=== PATIENT | female | born 1965 | race Caucasian/White ===

== ENCOUNTER 2017-10-21 02:39 | Outpatient (RCR) | payer BC, SELFPAY ==
[2017-10-21] MEDS: Normal Saline Flush 10 ML SYR IVP (10:40)
[2017-10-21 11:01] LABS: Abs Immature Grans 0.01 k/cumm (0.0-0.09); Absolute Eosinophil Count 0.01 k/cumm (0.0-0.7); Absolute Lymphocyte Count 0.49 k/cumm (1.2-3.4); Absolute Monocyte Count 0.42 k/cumm (0.11-0.7); Absolute Neutrophil Count 4.17 k/cumm (1.2-6.7); Eosinophils % 0.2; HCT 35.4 % (36.0-46.0); HGB 11.7 g/dL (12.0-15.5); Immature Grans % 0.2; Lymphocytes % 9.6; Mean Corp. HGB Concentration 33.1 g/dL (32.0-36.0); Mean Corpuscular Volume 99.7 fL (80-95); Mean Platelet Volume 11.2 fL (8.0-11.0); Monocytes % 8.2; Neutrophils % 81.8; RBC 3.55 m/cumm (4.00-5.20); RBC Distribution Width 18.7 % (11.7-14.6)
[2017-10-21 11:13] LABS: ALT 19 U/L (12-78); AST 14 U/L (15-37); Alkaline Phosphatase 151 U/L (46-116); Anion Gap 10.6 mmol/L (3-11); BUN 14 mg/dL (7-18); Bilirubin, Total 0.5 mg/dL (0.2-1.0); CO2 27.4 mmol/L (21.0-32.0); Calcium 9.1 mg/dL (8.5-10.1); Chloride 101 mmol/L (98-107); Glucose 96 mg/dL (70-100); Potassium 4.2 mmol/L (3.5-5.1); Sodium 139 mmol/L (136-145)
[2017-10-21 11:18] LABS: Anisocytosis 2+; Diff Comment RBC Morph Reviewed; Macrocytosis 1+; Platelet Count 75 x1000/uL (130-400); Polychromasia Present
[2017-10-28] MEDS: Normal Saline Flush 10 ML SYR IVP (10:12)
[2017-10-28 10:24] LABS: Abs Immature Grans 0.02 k/cumm (0.0-0.09); Absolute Basophil Count 0.02 k/cumm (0.0-0.2); Absolute Eosinophil Count 0.05 k/cumm (0.0-0.7); Absolute Lymphocyte Count 0.93 k/cumm (1.2-3.4); Absolute Monocyte Count 0.31 k/cumm (0.11-0.7); Basophils % 0.4; Eosinophils % 1.1; HCT 36.7 % (36.0-46.0); HGB 12.1 g/dL (12.0-15.5); Immature Grans % 0.4; Lymphocytes % 20.1; Mean Corpuscular Hemoglobin 32.7 pg (27.0-33.0); Mean Corpuscular Volume 99.2 fL (80-95); Mean Platelet Volume 10.2 fL (8.0-11.0); Monocytes % 6.7; Neutrophils % 71.3; White Blood Cell Count 4.63 k/cumm (4.4-10.8)
[2017-10-28 10:36] LABS: Platelet Count 82 x1000/uL (130-400)
[2017-10-28 10:39] LABS: ALT 29 U/L (12-78); AST 18 U/L (15-37); Alkaline Phosphatase 121 U/L (46-116); Anion Gap 10.4 mmol/L (3-11); BUN 10 mg/dL (7-18); Bilirubin, Total 1.3 mg/dL (0.2-1.0); CO2 26.6 mmol/L (21.0-32.0); CREATININE 0.43 mg/dL (0.55-1.02); Calcium 8.6 mg/dL (8.5-10.1); Chloride 100 mmol/L (98-107); Glucose 83 mg/dL (70-100); Potassium 3.5 mmol/L (3.5-5.1); Sodium 137 mmol/L (136-145); Total Protein 6.9 g/dL (6.4-8.2)
[2017-11-11] MEDS: Normal Saline Flush 10 ML SYR IVP (08:10)
[2017-11-11 08:18] LABS: Abs Immature Grans 0.15 k/cumm (0.0-0.09); HCT 32.7 % (36.0-46.0); HGB 10.8 g/dL (12.0-15.5); Mean Corpuscular Hemoglobin 34.1 pg (27.0-33.0); Mean Corpuscular Volume 103.2 fL (80-95); Mean Platelet Volume 10.5 fL (8.0-11.0); RBC 3.17 m/cumm (4.00-5.20); RBC Distribution Width 19.2 % (11.7-14.6); White Blood Cell Count 3.32 k/cumm (4.4-10.8)
[2017-11-11 08:32] LABS: ALT 22 U/L (12-78); AST 13 U/L (15-37); Alkaline Phosphatase 132 U/L (46-116); Anion Gap 5.9 mmol/L (3-11); BUN 15 mg/dL (7-18); Bilirubin, Total 0.3 mg/dL (0.2-1.0); CO2 29.1 mmol/L (21.0-32.0); Calcium 8.4 mg/dL (8.5-10.1); Chloride 100 mmol/L (98-107); Glucose 104 mg/dL (70-100); Potassium 3.9 mmol/L (3.5-5.1); Sodium 135 mmol/L (136-145); Total Protein 6.4 g/dL (6.4-8.2)
[2017-11-11 08:47] LABS: Absolute Lymphocyte Count 0.46 k/cumm (1.2-3.4); Absolute Monocyte Count 0.27 k/cumm (0.11-0.7); Absolute Neutrophil Count 2.52 k/cumm (1.2-6.7); Atypical Lymphocytes % 1; Platelet Count 98 x1000/uL (130-400)
[2017-11-11 08:48] LABS: Diff Comment Manual Differential
[2017-11-11 08:49] LABS: Anisocytosis 2+; Poikilocytes 1+; Polychromasia Present
[2017-11-12 14:32] LABS: CEA 670.2 ng/ml
[2017-12-23] MEDS: Normal Saline Flush 10 ML SYR IVP ×2 (09:00→11:05)
[2017-12-23 11:24] LABS: Abs Immature Grans 0.08 k/cumm (0.0-0.09); Absolute Eosinophil Count 0.07 k/cumm (0.0-0.7); Absolute Lymphocyte Count 1.69 k/cumm (1.2-3.4); Basophils % 1.5; HCT 32.8 % (36.0-46.0); Immature Grans % 1.2; Lymphocytes % 24.7; Mean Corp. HGB Concentration 33.5 g/dL (32.0-36.0); Mean Corpuscular Hemoglobin 35.1 pg (27.0-33.0); Mean Corpuscular Volume 104.8 fL (80-95); Mean Platelet Volume 9.4 fL (8.0-11.0); Monocytes % 13.2; Neutrophils % 58.4; Platelet Count 112 x1000/uL (130-400); RBC 3.13 m/cumm (4.00-5.20); RBC Distribution Width 15.7 % (11.7-14.6); White Blood Cell Count 6.84 k/cumm (4.4-10.8)
[2017-12-23 11:37] LABS: ALT 19 U/L (12-78); AST 18 U/L (15-37); Albumin 3.1 g/dL (3.4-5.0); Alkaline Phosphatase 119 U/L (46-116); Anion Gap 10.3 mmol/L (3-11); BUN 4 mg/dL (7-18); Bilirubin, Total 0.6 mg/dL (0.2-1.0); CO2 28.7 mmol/L (21.0-32.0); CREATININE 0.47 mg/dL (0.55-1.02); Chloride 99 mmol/L (98-107); Glucose 90 mg/dL (70-100); Sodium 138 mmol/L (136-145); Total Protein 6.4 g/dL (6.4-8.2)
[2017-12-24 09:41] LABS: CEA 772.4 ng/ml
[2017-12-30] MEDS: Normal Saline Flush 10 ML SYR IVP (08:30)
[2017-12-30 08:47] LABS: Abs Immature Grans 0.02 k/cumm (0.0-0.09); Absolute Basophil Count 0.04 k/cumm (0.0-0.2); Absolute Eosinophil Count 0.01 k/cumm (0.0-0.7); Absolute Lymphocyte Count 0.61 k/cumm (1.2-3.4); Absolute Monocyte Count 0.78 k/cumm (0.11-0.7); Absolute Neutrophil Count 3.32 k/cumm (1.2-6.7); Basophils % 0.8; Eosinophils % 0.2; HCT 30.2 % (36.0-46.0); HGB 10.5 g/dL (12.0-15.5); Immature Grans % 0.4; Lymphocytes % 12.8; Mean Corp. HGB Concentration 34.8 g/dL (32.0-36.0); Mean Corpuscular Hemoglobin 35.2 pg (27.0-33.0); Mean Corpuscular Volume 101.3 fL (80-95); Mean Platelet Volume 10.4 fL (8.0-11.0); Monocytes % 16.3; Neutrophils % 69.5; Platelet Count 105 x1000/uL (130-400); RBC 2.98 m/cumm (4.00-5.20); RBC Distribution Width 14.9 % (11.7-14.6); White Blood Cell Count 4.78 k/cumm (4.4-10.8)
[2017-12-30 08:59] LABS: ALT 17 U/L (12-78); AST 18 U/L (15-37); Albumin 3.1 g/dL (3.4-5.0); Alkaline Phosphatase 126 U/L (46-116); Anion Gap 13.4 mmol/L (3-11); BUN 5 mg/dL (7-18); Bilirubin, Total 0.6 mg/dL (0.2-1.0); CO2 24.6 mmol/L (21.0-32.0); CREATININE 0.79 mg/dL (0.55-1.02); Calcium 7.2 mg/dL (8.5-10.1); Chloride 93 mmol/L (98-107); Glucose 225 mg/dL (70-100); Sodium 131 mmol/L (136-145); Total Protein 6.6 g/dL (6.4-8.2)
[2017-12-30 09:04] LABS: Potassium 2.9 mmol/L (3.5-5.1)
[2017-12-30 13:42] LABS: Magnesium 0.7 mg/dL (1.8-2.4)
[2017-12-31 11:52] LABS: CEA 956.2 ng/ml
[2018-01-06] MEDS: Normal Saline Flush 10 ML SYR IVP (07:55)
[2018-01-06 08:14] LABS: Abs Immature Grans 0.03 k/cumm (0.0-0.09); Absolute Basophil Count 0.06 k/cumm (0.0-0.2); Absolute Eosinophil Count 0.04 k/cumm (0.0-0.7); Absolute Lymphocyte Count 0.88 k/cumm (1.2-3.4); Absolute Neutrophil Count 3.58 k/cumm (1.2-6.7); Eosinophils % 0.7; HCT 34.4 % (36.0-46.0); HGB 11.6 g/dL (12.0-15.5); Immature Grans % 0.5; Lymphocytes % 15.2; Mean Corp. HGB Concentration 33.7 g/dL (32.0-36.0); Mean Corpuscular Volume 103.9 fL (80-95); Mean Platelet Volume 10.1 fL (8.0-11.0); Monocytes % 20.7; Neutrophils % 61.9; Platelet Count 100 x1000/uL (130-400); RBC 3.31 m/cumm (4.00-5.20); RBC Distribution Width 15.3 % (11.7-14.6); White Blood Cell Count 5.79 k/cumm (4.4-10.8)
[2018-01-06 08:26] LABS: ALT 16 U/L (12-78); AST 22 U/L (15-37); Alkaline Phosphatase 131 U/L (46-116); Anion Gap 6.7 mmol/L (3-11); BUN 5 mg/dL (7-18); Bilirubin, Total 1.1 mg/dL (0.2-1.0); CO2 31.3 mmol/L (21.0-32.0); CREATININE 0.52 mg/dL (0.55-1.02); Calcium 7.5 mg/dL (8.5-10.1); Chloride 97 mmol/L (98-107); Glucose 130 mg/dL (70-100); Sodium 135 mmol/L (136-145); Total Protein 6.6 g/dL (6.4-8.2)
[2018-01-06 08:34] LABS: Potassium 2.9 mmol/L (3.5-5.1)
[2018-01-06 08:35] LABS: Magnesium 0.6 mg/dL (1.8-2.4)
[2018-01-08 12:38] LABS: CEA 1202.6 ng/ml
[2018-01-13] MEDS: Normal Saline Flush 10 ML SYR IVP (09:45)
[2018-01-13 10:05] LABS: Abs Immature Grans 0.02 k/cumm (0.0-0.09); Absolute Basophil Count 0.02 k/cumm (0.0-0.2); Absolute Eosinophil Count 0.04 k/cumm (0.0-0.7); Absolute Lymphocyte Count 0.79 k/cumm (1.2-3.4); Absolute Monocyte Count 0.69 k/cumm (0.11-0.7); Absolute Neutrophil Count 3.28 k/cumm (1.2-6.7); Basophils % 0.4; Eosinophils % 0.8; HCT 32.2 % (36.0-46.0); HGB 10.7 g/dL (12.0-15.5); Immature Grans % 0.4; Lymphocytes % 16.3; Mean Corp. HGB Concentration 33.2 g/dL (32.0-36.0); Mean Corpuscular Hemoglobin 34.5 pg (27.0-33.0); Mean Corpuscular Volume 103.9 fL (80-95); Mean Platelet Volume 11.4 fL (8.0-11.0); Monocytes % 14.3; Neutrophils % 67.8; RBC Distribution Width 14.4 % (11.7-14.6); White Blood Cell Count 4.84 k/cumm (4.4-10.8)
[2018-01-13 10:22] LABS: ALT 13 U/L (12-78); AST 19 U/L (15-37); Albumin 2.9 g/dL (3.4-5.0); Alkaline Phosphatase 129 U/L (46-116); Anion Gap 10.9 mmol/L (3-11); BUN 6 mg/dL (7-18); Bilirubin, Total 0.7 mg/dL (0.2-1.0); CO2 26.1 mmol/L (21.0-32.0); CREATININE 0.36 mg/dL (0.55-1.02); Calcium 8.8 mg/dL (8.5-10.1); Chloride 99 mmol/L (98-107); Glucose 105 mg/dL (70-100); Potassium 3.3 mmol/L (3.5-5.1); Sodium 136 mmol/L (136-145); Total Protein 6.5 g/dL (6.4-8.2)
[2018-01-13 10:23] LABS: Platelet Count 42 x1000/uL (130-400)
[2018-01-13 10:24] LABS: Basophilic Stippling Present; Polychromasia Present
[2018-01-13 10:27] LABS: Poikilocytes 1+
[2018-01-13 10:30] LABS: Magnesium 0.7 mg/dL (1.8-2.4)
[2018-01-14 11:16] LABS: CEA 1309.5 ng/ml
== END 2018-01-16 ==
LOC: INF 10-28 01:52
PROVIDERS: PCP Family Medicine; Visit Provider Internal Medicine
DX: C16.8 Malignant neoplasm of overlapping sites of stomach (principal); C79.9 Secondary malignant neoplasm of unspecified site; Z45.2 Encounter for adjustment and management of vascular access device
CPT/HCPCS: 36591; 80053; 82378; 83735; 85025

== ENCOUNTER 2017-12-17 09:39 | Outpatient (RCR) | payer BC, SELFPAY | END 2018-01-16 23:59 | disposition home or self-care (01) | LOC: PRC 09:39 | PROVIDERS: PCP Family Medicine; Visit Provider Internal Medicine | DX: C16.8 Malignant neoplasm of overlapping sites of stomach (principal); C79.9 Secondary malignant neoplasm of unspecified site; Z45.2 Encounter for adjustment and management of vascular access device | CPT/HCPCS: 36591; 80053; 82378; 83735; 85025 ==

== ENCOUNTER 2017-12-23 11:45 | Outpatient (RCR) | payer BC, SELFPAY | END 2018-01-16 11:45 | LOC: INF 11:45 | PROVIDERS: PCP Family Medicine; Visit Provider Internal Medicine | DX: C16.8 Malignant neoplasm of overlapping sites of stomach (principal); C79.9 Secondary malignant neoplasm of unspecified site; Z45.2 Encounter for adjustment and management of vascular access device ==

== ENCOUNTER 2018-01-27 09:56 | Emergency (ER) | payer BC, SELFPAY ==
[2018-01-27] VITALS (48 sets, daily range): BP systolic 93–120; BP diastolic 63–88; PULSE 68–87; RESP 5–20; TEMP 36.7; O2SAT 87–100
--- NOTE | 2018-01-27 10:29 | DI.CT_ITS ---
SYMPTOM/DIAGNOSIS: LEFT SIDED PLEURITIC CHEST PAIN, CHEMO PATIENT CHEST CT FOR PULMONARY EMBOLISM: CT angiography was performed with multi slice acquisition and multi planar and 3D reconstruction. There are no prior CT's Comparison is made with portable chest dated 30 Jun 2017. Images were performed from the clavicles through the lung bases after IV contrast. There is no evidence of pulmonary emboli or aortic dissection. No pulmonary nodules or infiltrates are seen. There is mild basilar atelectasis. Numerous metastases are seen within the spine with associated soft tissue masses , greatest superiorly toward the left at the T3-4 level. There is a large lesion in the T-9 vertebral body eccentric toward the right. There is moderate compression of T-11 vertebral body with surrounding soft tissue mass. There is a large right sided rib metastasis anteriorly associated with the distal 5th rib. The 6th rib laterally also shows a lytic lesion. On the left, there is metastases involving the posterolateral 4th rib, 5th rib as well as 6th ribs with associated soft tissue masses. There is a lytic lesion involving the left acromion as well as small lytic lesion in the right humeral head and distal right clavicle. IMPRESSION: Diffuse bony metastases including multiple bilateral rib as well as spinal metastases. No evidence of pulmonary emboli.
--- NOTE | 2018-01-27 10:42 | W.ED.GENAD ---
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 Primary Care Provider: KURT PRICE ED Provider: Yen Moss Home Meds and New Rx's Prescriptions: Continue ondansetron HCl [Zofran] 8 MG tablet 8 mg PO DIRECTED RF: 0 topiramate [Topamax] 25 MG tablet 25 mg PO DAILY RF: 0 omeprazole 40 MG capsule,delayed release(DR/EC) 20 mg PO DIRECTED RF: 0 acetaminophen [Acetaminophen Extra Strength] 500 MG tablet 1,000 mg PO BID RF: 0 prochlorperazine [Compazine] 25 MG suppository 25 mg RC .Q12H PRN RF: 0 dexamethasone 4 MG tablet 4 mg PO DIRECTED RF: 0 promethazine 25 MG tablet 25 mg PO TID RF: 0 bisacodyl 5 MG tablet,delayed release (DR/EC) 5 mg PO DAILY PRN PRNRF: 0 ergocalciferol (vitamin D2) [Vitamin D2] 50,000 UNIT capsule 50,000 unit PO .QWEEKLY RF: 0 albuterol sulfate [ProAir HFA] 8.5 GM HFA aerosol inhaler 2 puff Inhalation Q4H PRN PRNRF: 0 fentanyl 100 mcg/hr Patch 72 Hour 3 patch Transdermal .Q72H RF: 0 ibuprofen 200 mg Tablet 200 - 400 mg PO PRN PRNRF: 0 Discharge Instructions Instructions: Hypokalemia (ED), Hypomagnesemia (ED) Additional Instructions: Encourage hydration. Please increase foods rich in potassium and magnesium, please see attached education for information on this. Please go to [facility] tomorrow for blood draw to check potassium and magnesium. Please contact primary care tomorrow afternoon to discuss results. [phone]. Please take Magnesium and Potassium supplements as previously advised. Follow up with oncology as previously scheduled. If you develop palpitations, chest pain, shortness of breath, increased pain or other new/worsening symptoms please seek care urgently once again. Referrals: KURT PRICE [Primary Care Provider] - 01/28/18 12:00 am Discharge Data Discharge Date/Time-TO BE ENTERED AT DEPARTURE: 01/27/18 16:33 Medical Decision Making MDM Narrative Medical decision making narrative: Patient presents for left sided chest wall pain. Patient has focal pain on exam that is easily reproducible on exam. No deformities noted. No known metastasis to this area the patient does report that she has metastasis from her stomach cancer to her spine and hips. Patient is also here for low magnesium and potassium. Potassium 2.6, magnesium is 0.8. Patient reports that typically she takes supplementation but that for the last week, while she has been on vacation, she has not been taking her replenishment as she was having GI upset. Associates her increased GI upset with travel. Also feeling increasingly fatigued but again, feels this is associated with her recent travel. We replenish her potassium, magnesium and obtain CT with PE protocol. We will also assess her troponin. Prescription of her discomfort does not sound cardiac in nature. Patient is currently endorsing nausea. Has multiple avenues to help with her nausea symptoms at home reports that these have been unsuccessful. She has tried Compazine give Zofran and Phenergan with minimal relief, patient will be given Reglan and Benadryl. EKG reviewed by Dr. Angulo. T wave inversion noted at V2, she advised this is not consistent with ischemic changes. No other acute abnormalities noted. No previous EKG available. CT reviewed by radiologist, she called department to report findings. Significant for metastasis to the left #5, 6, 7 ribs. Spinous is also noted. Patient was well aware of the spine metastases. No PE, no effusion, no pneumothorax. Discussed findings with patient. She was unaware of involvement in the ribs but reports that she figured. I discussed hospitalization for low magnesium and potassium, she is adamant that she wants to be discharged home. She understands my concern with her potassium and magnesium levels on the risks associated with these. Patient reports that her nausea is feeling much improved. However, she declines any p.o. intake at this time. Troponin <0.02 Consulted with oncology, physician to call back Patient reports that after IV Reglan she is feeling much improved. Feels jet lagged and is currently very fatigued. Nursing staff has attempted to get the patient to take her oral supplementation. She is declining any further antiemetics but reports that she does not want to take in anything orally. Will give IV magnesium instead. Spoke with oncologist, Dr. Yoon. We reviewed findings. We also discussed her potassium. He is aware that the patient wants to go home as soon as possible and does not wish to be admitted. We discussed that typically I would reassess the patient's potassium 2 hours after last potassium dosing. He advised that this was not necessary and that they would recheck this. Patient does live far away, I will attempt to see if primary care can arrange for a more expedited evaluation of her potassium. We also discussed her magnesium, advised that she is recieving 2g IV, he was satisfied with this replenishment. Spoke with PCP office, patient will be able to go to [facility] tomorrow to have potassium and magnesium rechecked. Discussed plan with the patient. She is grateful and agreeable to be seen tomorrow for recheck of her potassium to attempt voiding hospital admission and prolonged times in the emergency department. Patient is feeling much improved. Had initially been appearing very fatigued, likely associate with the jet lag and the Benadryl/Reglan combo. She is now appearing much more interactive. She is eating saltine crackers and taking in oral hydration. We will give p.o. potassium and continue to monitor to ensure that she tolerates this well. Patient tolerated 40 of potassium well. Is requesting discharge at this time. She is feeling much improved. Reports that her overall fatigue and feeling of unwell have greatly subsided. Patient is to have her electrolytes rechecked tomorrow as above. This will Be followed up by her primary care physician. Patient was given strict return precautions. She is able to return if she develops new or worsening symptoms. She has upcoming appointment with her oncologist this week which she will also keep. She will begin her oral supplementation of her magnesium and potassium once again. All of her questions and concerns were addressed and she is in agreement with this plan. HPI - General Adult General Mode of arrival: ambulatory. Date/Time Provider Initiated Documentation: 01/27/18 10:28. Limitations to Documentation: no limitations. Information obtained by: patient. HPI Narrative: Patient is a 52-year-old female presenting today with chief complaint of left sided chest wall pain that is worse with rotational movements and deep inspiration that began 2 weeks ago. Patient was sent here by her oncologist for evaluation of pleuritic chest pain. He did call and I spoke with him regarding his concerns, he advised that he is primarily concerned for pulmonary embolus given her high risk factors. Patient has history of stomach cancer and is currently undergoing chemotherapy. He also notes the patient's potassium was checked today and found to be 2.6, magnesium is 0.8. She has had difficulty with hypokalemia and hypomagnesemia historically. She does take potassium supplementation daily. She reports that when just walking she is not having any chest pain. No central chest pain. No shortness of breath or difficulty breathing. Seems more movement oriented than exertional. She denies any trauma. Indicates the lateral aspect of the left breast is the area of maximal discomfort and reports that she does have exquisite tenderness with palpation over this area as well. No cough. No fevers or chills. Is otherwise been feeling at her baseline. Reports that she does have nausea and vomiting but reports that this is baseline and associates with her chemotherapy. Patient has tried Zofran yesterday with no relief of her symptoms. She is also tried Compazine and Phenergan reports that she has not used these recently. She denies any palpitations. Denies abdominal pain. No headache. The discomfort does not radiate. Rather, it is isolated to the lateral chest wall extending from the left lateral breast around towards the back of the chest wall. Patient did recently travel to [place], was there for a week, flew back last night. Related Data Home Medications Medication Instructions Recorded Confirmed acetaminophen [Acetaminophen Extra 1,000 mg PO BID 06/27/17 01/27/18 Strength] albuterol sulfate [ProAir HFA] 2 puff INHALATION Q4H PRN PRN 06/27/17 01/27/18 bisacodyl 5 mg PO DAILY PRN PRN 06/27/17 01/27/18 dexamethasone 4 mg PO DIRECTED 06/27/17 01/27/18 ergocalciferol (vitamin D2) 50,000 unit PO .QWEEKLY 06/27/17 01/27/18 [Vitamin D2] omeprazole 20 mg PO DIRECTED 06/27/17 01/27/18 ondansetron HCl [Zofran] 8 mg PO DIRECTED 06/27/17 01/27/18 prochlorperazine [Compazine] 25 mg RC .Q12H PRN 06/27/17 01/27/18 promethazine 25 mg PO TID 06/27/17 01/27/18 topiramate [Topamax] 25 mg PO DAILY 06/27/17 06/30/17 fentanyl 3 patch TRANSDERMAL .Q72H 01/27/18 01/27/18 ibuprofen 200 - 400 mg PO PRN PRN 01/27/18 01/27/18 Allergies Allergy/AdvReac Type Severity Reaction Status Date / Time No Known Drug Allergies Allergy Unknown Verified 01/27/18 10:33 hymenoptera bee Allergy Uncoded 01/27/18 10:33 General Stated Complaint: Chest/Rib GÉNESIS: 2 Review of Systems Constitutional Reports as per HPI, Denies chills, Reports fatigue (Patient appears fatigued, associates with chemotherapy), Denies fever(s), Denies frequent falls and Denies headache(s) Eyes Patient Denies loss of vision ENT Denies headache(s) Cardiovascular Reports as per HPI, Reports chest pain, Denies chest pain at rest, Reports chest pain with activity (with rotation ), Denies syncope, Denies pedal edema, Denies edema, Denies lightheadedness, Denies dyspnea and Denies dyspnea on exertion Respiratory Reports as per HPI, Denies chest congestion, Denies cough, Denies hemoptysis, Reports pain on inspiration, Reports pain with cough, Denies dyspnea, Denies dyspnea on exertion, Denies stridor and Denies wheezing Gastrointestinal Denies abdominal pain, Denies change in bowel habits, Denies cramping, Reports nausea, Reports vomiting and Denies hematemesis Genitourinary Reports system reviewed and no additional complaints, except as docu (no change in urinary habits) and Denies nipple discharge Musculoskeletal Reports as per HPI (atraumatic chest wall pain) and Denies numbness Integumentary/Breasts Denies new lesions, Denies nipple discharge, Denies erythema, Denies rash, Reports skin pain, Denies skin ulcer, Denies sores, Denies unusual bruising and Denies wounds Neurologic Denies syncope, Denies frequent falls, Denies headache(s), Denies lack of coordination, Denies loss of vision and Denies numbness Endocrine Reports fatigue (Patient appears fatigued, associates with chemotherapy) Allergic/Immunologic Denies wheezing PFSH Family History Other Gastric cancer Medical History Rheumatoid arthritis Social History Smoking/Tobacco Use Status: Current every day Exam Const General: cooperative, comfortable and no acute distress Nutritional Appearance: cachectic, malnourished, thin and underweight Orientation: alert and awake [facility] Head: normal to inspection, normocephalic and atraumatic Mouth: oral mucosae normal, lip normal and tongue normal Throat: posterior oropharynx normal Eyes General: appearance normal, both eyes and all related structures Neck Neck: normal visual inspection, no lymphadenopathy and no meningeal signs Chest Chest: normal palpation of entire chest wall (No palpable deformity, no rash. Patient has stenderness with palpation over the 6th and 7th ribs over the lateral aspect of the left breast fold. Pain reproduced with palpation. ), no crepitus, localized rib tenderness with anteroposterior compression, no masses, tenderness and No pacemaker (patinet has port on left anterior chest) Resp Effort & Inspection: normal respiratory effort, able to speak in complete sentences and no respiratory distress Auscultation: clear to auscultation bilaterally, no rhonchi and no wheezes Cardio Jugular venous pressure: no JVD Palpation: normal PMI Rate: regular rate Rhythm: regular rhythm Heart Sounds: S1 normal and S2 normal GI Inspection: normal to inspection Palpation: soft, not firm, no guarding, not rigid and nontender Back/Spine/Pelvis Back: no CVA tenderness Thoracic/Lumbar Spine: thoracic and lumbar spine normal to inspection Skin General skin exam: no rashes or lesions noted Lesions: no lesions Rashes: no rashes Trauma: no lacerations or abrasions Neuro General: alert, awake, oriented x3, gait normal and moves all extremities Cognition: normal cognition Speech: speech normal Gait: normal gait Extrem General: no pedal edema and no calf tenderness Psych Appearance: grossly normal Mental Status: mental status grossly normal Speech and Movement: speech and movement normal Mood: congruent mood Course Vital Signs Temperature 36.7 C 01/27/18 10:25 Pulse 86 01/27/18 10:25 Respiratory Rate 16 01/27/18 10:25 Blood Pressure 120/88 01/27/18 10:25 Pulse Oximetry 95 01/27/18 10:25 Temperature 36.7 C 01/27/18 10:25 Pulse 86 01/27/18 10:25 Respiratory Rate 16 01/27/18 10:25 Blood Pressure 120/88 01/27/18 10:25 Pulse Oximetry 95 01/27/18 10:25
[2018-01-27] MEDS: diphenhydrAMINE 50 MG/ML VIAL 25 MG IVP (10:54)
[2018-01-27] MEDS: Lactated Ringers 1,000 ML 1000 ML IV (10:56)
[2018-01-27] MEDS: Metoclopramide 10 MG/2 ML VIAL IVP (10:57)
[2018-01-27] MEDS: POTASSIUM CHLORIDE 20 MEQ/100 ML BAG 50 MEQ IVPB ×2 (11:01→13:38)
[2018-01-27 11:08] LABS: Troponin I < 0.02 ng/mL (0.00-0.06)
[2018-01-27] MEDS: Omnipaque 350 MG/ML 100 ML BTL IJ (11:51)
[2018-01-27] MEDS: MAGNESIUM SULFATE 2 GM/50 ML BAG IVPB (13:38)
[2018-01-27] MEDS: Lactated Ringers 1,000 ML 200 ML IV (13:38)
[2018-01-27] MEDS: Potassium Chloride 20 MEQ TABCR 40 MEQ PO (15:58)
[2018-01-27] MEDS: Heparin 500 UNITS/5 ML SYRINGE (16:30)
== END 2018-01-27 16:33 | disposition home or self-care (01) ==
PROVIDERS: Emergency Provider Physician Assistant; PCP Family Medicine
DX: E87.6 Hypokalemia (principal); E83.42 Hypomagnesemia; C79.51 Secondary malignant neoplasm of bone; C16.9 Malignant neoplasm of stomach, unspecified; Z79.899 Other long term (current) drug therapy
CPT/HCPCS: 71275; 93005; 96361; 96365; 96366; 96375; 99285; 84484; 93010; J1200; J2765; J3480; J3490

== ENCOUNTER 2018-02-10 01:37 | Outpatient (RCR) | payer BC, SELFPAY ==
[2018-01-27] MEDS: Normal Saline Flush 10 ML SYR IVP (07:40)
[2018-01-27 07:56] LABS: Abs Immature Grans 0.04 k/cumm (0.0-0.09); Absolute Basophil Count 0.04 k/cumm (0.0-0.2); Absolute Eosinophil Count 0.12 k/cumm (0.0-0.7); Absolute Lymphocyte Count 1.15 k/cumm (1.2-3.4); Absolute Monocyte Count 0.88 k/cumm (0.11-0.7); Absolute Neutrophil Count 3.72 k/cumm (1.2-6.7); Basophils % 0.7; HCT 34.5 % (36.0-46.0); HGB 11.3 g/dL (12.0-15.5); Immature Grans % 0.7; Lymphocytes % 19.3; Mean Corp. HGB Concentration 32.8 g/dL (32.0-36.0); Mean Corpuscular Hemoglobin 35.1 pg (27.0-33.0); Mean Corpuscular Volume 107.1 fL (80-95); Mean Platelet Volume 10.2 fL (8.0-11.0); Monocytes % 14.8; Neutrophils % 62.5; Platelet Count 109 x1000/uL (130-400); RBC 3.22 m/cumm (4.00-5.20); RBC Distribution Width 15.7 % (11.7-14.6); White Blood Cell Count 5.95 k/cumm (4.4-10.8)
[2018-01-27 08:09] LABS: ALT 10 U/L (12-78); AST 17 U/L (15-37); Albumin 2.8 g/dL (3.4-5.0); Alkaline Phosphatase 114 U/L (46-116); Anion Gap 8.8 mmol/L (3-11); BUN 10 mg/dL (7-18); Bilirubin, Total 0.8 mg/dL (0.2-1.0); CO2 33.2 mmol/L (21.0-32.0); CREATININE 0.38 mg/dL (0.55-1.02); Calcium 9.6 mg/dL (8.5-10.1); Chloride 98 mmol/L (98-107); Glucose 98 mg/dL (70-100); Magnesium 0.8 mg/dL (1.8-2.4); Sodium 140 mmol/L (136-145); Total Protein 6.5 g/dL (6.4-8.2)
[2018-01-27 08:15] LABS: Potassium 2.6 mmol/L (3.5-5.1)
[2018-01-28 13:08] LABS: CEA 1545.1 ng/ml
[2018-02-03] MEDS: Normal Saline Flush 10 ML SYR IVP (11:05)
[2018-02-03 11:21] LABS: Abs Immature Grans 0.05 k/cumm (0.0-0.09); Absolute Basophil Count 0.04 k/cumm (0.0-0.2); Absolute Eosinophil Count 0.03 k/cumm (0.0-0.7); Absolute Lymphocyte Count 1.08 k/cumm (1.2-3.4); Absolute Monocyte Count 1.05 k/cumm (0.11-0.7); Absolute Neutrophil Count 5.98 k/cumm (1.2-6.7); Basophils % 0.5; Eosinophils % 0.4; HCT 35.6 % (36.0-46.0); HGB 11.8 g/dL (12.0-15.5); Immature Grans % 0.6; Lymphocytes % 13.1; Mean Corp. HGB Concentration 33.1 g/dL (32.0-36.0); Mean Corpuscular Hemoglobin 34.9 pg (27.0-33.0); Mean Corpuscular Volume 105.3 fL (80-95); Mean Platelet Volume 9.6 fL (8.0-11.0); Monocytes % 12.8; Neutrophils % 72.6; Platelet Count 139 x1000/uL (130-400); RBC 3.38 m/cumm (4.00-5.20); RBC Distribution Width 15.3 % (11.7-14.6); White Blood Cell Count 8.23 k/cumm (4.4-10.8)
[2018-02-03 11:34] LABS: ALT 8 U/L (12-78); AST 17 U/L (15-37); Albumin 2.7 g/dL (3.4-5.0); Alkaline Phosphatase 105 U/L (46-116); Anion Gap 10.5 mmol/L (3-11); BUN 12 mg/dL (7-18); Bilirubin, Total 1.1 mg/dL (0.2-1.0); CO2 30.5 mmol/L (21.0-32.0); CREATININE 0.52 mg/dL (0.55-1.02); Calcium 8.9 mg/dL (8.5-10.1); Chloride 96 mmol/L (98-107); Glucose 84 mg/dL (70-100); Potassium 3.4 mmol/L (3.5-5.1); Sodium 137 mmol/L (136-145); Total Protein 6.4 g/dL (6.4-8.2)
[2018-02-03 11:36] LABS: Diff Comment RBC Morph Reviewed; Macrocytosis 2+; Polychromasia Present
[2018-02-03 13:06] LABS: Magnesium 0.7 mg/dL (1.8-2.4)
[2018-02-10] MEDS: Normal Saline Flush 10 ML SYR IVP (08:20)
[2018-02-10 08:37] LABS: Abs Immature Grans 0.03 k/cumm (0.0-0.09); Absolute Basophil Count 0.08 k/cumm (0.0-0.2); Absolute Eosinophil Count 0.07 k/cumm (0.0-0.7); Absolute Lymphocyte Count 1.47 k/cumm (1.2-3.4); Absolute Monocyte Count 0.61 k/cumm (0.11-0.7); Absolute Neutrophil Count 2.77 k/cumm (1.2-6.7); Basophils % 1.6; Eosinophils % 1.4; HCT 34.5 % (36.0-46.0); HGB 11.5 g/dL (12.0-15.5); Immature Grans % 0.6; Lymphocytes % 29.2; Mean Corp. HGB Concentration 33.3 g/dL (32.0-36.0); Mean Corpuscular Hemoglobin 34.2 pg (27.0-33.0); Mean Corpuscular Volume 102.7 fL (80-95); Mean Platelet Volume 10.3 fL (8.0-11.0); Monocytes % 12.1; Neutrophils % 55.1; Platelet Count 107 x1000/uL (130-400); RBC 3.36 m/cumm (4.00-5.20); RBC Distribution Width 14.4 % (11.7-14.6); White Blood Cell Count 5.03 k/cumm (4.4-10.8)
[2018-02-10 09:04] LABS: ALT 11 U/L (12-78); AST 19 U/L (15-37); Albumin 2.8 g/dL (3.4-5.0); Alkaline Phosphatase 113 U/L (46-116); Anion Gap 9.8 mmol/L (3-11); BUN 7 mg/dL (7-18); Bilirubin, Total 0.7 mg/dL (0.2-1.0); CO2 32.2 mmol/L (21.0-32.0); CREATININE 0.49 mg/dL (0.55-1.02); Chloride 95 mmol/L (98-107); Glucose 97 mg/dL (70-100); Magnesium 0.8 mg/dL (1.8-2.4); Sodium 137 mmol/L (136-145); Total Protein 6.5 g/dL (6.4-8.2)
[2018-02-10 09:06] LABS: Potassium 2.9 mmol/L (3.5-5.1)
[2018-02-11 12:12] LABS: CEA 1757.9 ng/ml
== END 2018-02-15 23:59 | disposition home or self-care (01) ==
LOC: INF 01:37
PROVIDERS: PCP Family Medicine; Visit Provider Internal Medicine
DX: C16.8 Malignant neoplasm of overlapping sites of stomach (principal); C79.9 Secondary malignant neoplasm of unspecified site; C16.9 Malignant neoplasm of stomach, unspecified; Z45.2 Encounter for adjustment and management of vascular access device
CPT/HCPCS: 36591; 80053; 82378; 83735; 85025

== ENCOUNTER 2018-03-17 01:10 | Outpatient (RCR) | payer BC, SELFPAY ==
[2018-02-17] MEDS: Normal Saline Flush 10 ML SYR IVP (08:30)
[2018-02-17 08:52] LABS: Abs Immature Grans 0.02 k/cumm (0.0-0.09); Absolute Basophil Count 0.05 k/cumm (0.0-0.2); Absolute Eosinophil Count 0.03 k/cumm (0.0-0.7); Absolute Lymphocyte Count 0.62 k/cumm (1.2-3.4); Absolute Monocyte Count 0.52 k/cumm (0.11-0.7); Absolute Neutrophil Count 1.97 k/cumm (1.2-6.7); Basophils % 1.6; Eosinophils % 0.9; HCT 30.2 % (36.0-46.0); HGB 10.4 g/dL (12.0-15.5); Immature Grans % 0.6; Lymphocytes % 19.3; Mean Corp. HGB Concentration 34.4 g/dL (32.0-36.0); Mean Corpuscular Hemoglobin 35.3 pg (27.0-33.0); Mean Corpuscular Volume 102.4 fL (80-95); Monocytes % 16.2; Neutrophils % 61.4; Platelet Count 129 x1000/uL (130-400); RBC 2.95 m/cumm (4.00-5.20); RBC Distribution Width 14.6 % (11.7-14.6); White Blood Cell Count 3.21 k/cumm (4.4-10.8)
[2018-02-17 09:10] LABS: ALT 11 U/L (12-78); AST 18 U/L (15-37); Albumin 2.8 g/dL (3.4-5.0); Alkaline Phosphatase 114 U/L (46-116); Anion Gap 9.9 mmol/L (3-11); BUN 13 mg/dL (7-18); Bilirubin, Total 0.7 mg/dL (0.2-1.0); CO2 30.1 mmol/L (21.0-32.0); CREATININE 0.52 mg/dL (0.55-1.02); Calcium 8.6 mg/dL (8.5-10.1); Chloride 95 mmol/L (98-107); Glucose 130 mg/dL (70-100); Sodium 135 mmol/L (136-145); Total Protein 6.5 g/dL (6.4-8.2)
[2018-02-17 09:12] LABS: Potassium 2.9 mmol/L (3.5-5.1)
[2018-02-18 10:57] LABS: CEA 1899.4 ng/ml
[2018-02-24] MEDS: Normal Saline Flush 10 ML SYR IVP (08:15)
[2018-02-24 08:36] LABS: Abs Immature Grans 0.05 k/cumm (0.0-0.09); Absolute Basophil Count 0.06 k/cumm (0.0-0.2); Absolute Eosinophil Count 0.02 k/cumm (0.0-0.7); Absolute Lymphocyte Count 0.72 k/cumm (1.2-3.4); Absolute Monocyte Count 0.56 k/cumm (0.11-0.7); Absolute Neutrophil Count 2.47 k/cumm (1.2-6.7); Basophils % 1.5; Eosinophils % 0.5; HCT 30.7 % (36.0-46.0); HGB 10.3 g/dL (12.0-15.5); Immature Grans % 1.3; Lymphocytes % 18.6; Mean Corp. HGB Concentration 33.6 g/dL (32.0-36.0); Mean Corpuscular Hemoglobin 34.8 pg (27.0-33.0); Mean Corpuscular Volume 103.7 fL (80-95); Mean Platelet Volume 10.7 fL (8.0-11.0); Monocytes % 14.4; Neutrophils % 63.7; Platelet Count 133 x1000/uL (130-400); RBC 2.96 m/cumm (4.00-5.20); RBC Distribution Width 14.9 % (11.7-14.6); White Blood Cell Count 3.88 k/cumm (4.4-10.8)
[2018-02-24 08:47] LABS: ALT 12 U/L (12-78); AST 15 U/L (15-37); Albumin 2.6 g/dL (3.4-5.0); Alkaline Phosphatase 115 U/L (46-116); Anion Gap 9.5 mmol/L (3-11); BUN 7 mg/dL (7-18); Bilirubin, Total 0.6 mg/dL (0.2-1.0); CO2 30.5 mmol/L (21.0-32.0); CREATININE 0.36 mg/dL (0.55-1.02); Calcium 8.2 mg/dL (8.5-10.1); Chloride 98 mmol/L (98-107); Glucose 114 mg/dL (70-100); Magnesium 1.2 mg/dL (1.8-2.4); Potassium 3.2 mmol/L (3.5-5.1); Sodium 138 mmol/L (136-145); Total Protein 6.3 g/dL (6.4-8.2)
[2018-03-10] MEDS: Normal Saline Flush 10 ML SYR IVP (07:55)
[2018-03-10 08:17] LABS: Abs Immature Grans 0.04 k/cumm (0.0-0.09); Absolute Basophil Count 0.05 k/cumm (0.0-0.2); Absolute Eosinophil Count 0.05 k/cumm (0.0-0.7); Absolute Lymphocyte Count 1.35 k/cumm (1.2-3.4); Absolute Monocyte Count 1.49 k/cumm (0.11-0.7); Absolute Neutrophil Count 6.85 k/cumm (1.2-6.7); Basophils % 0.5; Eosinophils % 0.5; HCT 36.2 % (36.0-46.0); HGB 11.8 g/dL (12.0-15.5); Immature Grans % 0.4; Lymphocytes % 13.7; Mean Corp. HGB Concentration 32.6 g/dL (32.0-36.0); Mean Corpuscular Hemoglobin 33.7 pg (27.0-33.0); Mean Corpuscular Volume 103.4 fL (80-95); Mean Platelet Volume 10.1 fL (8.0-11.0); Monocytes % 15.2; Neutrophils % 69.7; Platelet Count 123 x1000/uL (130-400); RBC Distribution Width 16.4 % (11.7-14.6); White Blood Cell Count 9.83 k/cumm (4.4-10.8)
[2018-03-10 08:24] LABS: ALT 13 U/L (12-78); AST 17 U/L (15-37); Albumin 2.5 g/dL (3.4-5.0); Alkaline Phosphatase 120 U/L (46-116); Anion Gap 11.3 mmol/L (3-11); BUN 7 mg/dL (7-18); Bilirubin, Total 0.9 mg/dL (0.2-1.0); CO2 30.7 mmol/L (21.0-32.0); CREATININE 0.49 mg/dL (0.55-1.02); Calcium 8.6 mg/dL (8.5-10.1); Chloride 93 mmol/L (98-107); Glucose 104 mg/dL (70-100); Magnesium 0.8 mg/dL (1.8-2.4); Sodium 135 mmol/L (136-145)
[2018-03-11 11:11] LABS: CEA 2330.9 ng/ml
[2018-03-17] MEDS: Normal Saline Flush 10 ML SYR IVP (08:15)
[2018-03-17 08:32] LABS: Bilirubin Large (Negative); Blood Trace-intact (Negative); Clarity Cloudy; Glucose Negative (Negative); Ketones 40 mg/dL (Negative); Leukocyte Esterase Small (Negative); Nitrite Negative (Negative); Specific Gravity >= 1.030 (1.005-1.025); Urobilinogen 0.2 EU/dL (Up TO 0.2); pH 5.5 (5-8)
[2018-03-17 08:38] LABS: Abs Immature Grans 0.04 k/cumm (0.0-0.09); Absolute Basophil Count 0.06 k/cumm (0.0-0.2); Absolute Eosinophil Count 0.04 k/cumm (0.0-0.7); Absolute Monocyte Count 0.48 k/cumm (0.11-0.7); Absolute Neutrophil Count 3.04 k/cumm (1.2-6.7); Basophils % 1.3; Eosinophils % 0.9; HCT 32.9 % (36.0-46.0); HGB 10.7 g/dL (12.0-15.5); Immature Grans % 0.9; Lymphocytes % 19.7; Mean Corp. HGB Concentration 32.5 g/dL (32.0-36.0); Mean Corpuscular Hemoglobin 33.6 pg (27.0-33.0); Mean Corpuscular Volume 103.5 fL (80-95); Mean Platelet Volume 11.2 fL (8.0-11.0); Monocytes % 10.5; Neutrophils % 66.7; RBC 3.18 m/cumm (4.00-5.20); RBC Distribution Width 15.7 % (11.7-14.6); White Blood Cell Count 4.56 k/cumm (4.4-10.8)
[2018-03-17 08:43] LABS: ALT 10 U/L (12-78); AST 17 U/L (15-37); Albumin 2.4 g/dL (3.4-5.0); Alkaline Phosphatase 100 U/L (46-116); Anion Gap 14.9 mmol/L (3-11); BUN 9 mg/dL (7-18); Bilirubin, Total 1.1 mg/dL (0.2-1.0); CO2 26.1 mmol/L (21.0-32.0); CREATININE 0.47 mg/dL (0.55-1.02); Calcium 9.1 mg/dL (8.5-10.1); Chloride 94 mmol/L (98-107); Glucose 66 mg/dL (70-100); Potassium 3.7 mmol/L (3.5-5.1); Sodium 135 mmol/L (136-145); Total Protein 5.8 g/dL (6.4-8.2)
[2018-03-17 08:45] LABS: Epithelial Cells Many HPF (Negative); RBC Negative (0-2)
[2018-03-17 08:46] LABS: Bacteria Many HPF (Negative); C & S Indicated? No/Sq. Contamination; Casts Negative LPF (Negative); Crystals Negative HPF (Negative); Mucus Heavy (Negative)
[2018-03-17 08:56] LABS: Platelet Count 77 x1000/uL (130-400)
[2018-03-17 08:57] LABS: Diff Comment Diff Reviewed; Hypochromasia 1+; Macrocytosis 1+; Polychromasia Present
== END 2018-03-18 23:59 | disposition home or self-care (01) ==
LOC: INF 01:10
PROVIDERS: PCP Family Medicine; Visit Provider Internal Medicine
DX: C16.8 Malignant neoplasm of overlapping sites of stomach (principal); C79.51 Secondary malignant neoplasm of bone; Z45.2 Encounter for adjustment and management of vascular access device
CPT/HCPCS: 36591; 80053; 81003; 81015; 82378; 83735; 85025

== ENCOUNTER 2018-03-20 12:52 | Outpatient (REF) | payer BC, SELFPAY ==
--- NOTE | 2018-03-20 11:30 | SKI_PTH ---
PATIENT: CYNTHIA ELDER LOC: [facility] U#:[id number] AGE/SX: 53/F ROOM: RE03/20/[address]: Iram Nguyen MD : 1965 BED: DIS: 03/20/2018 SPEC #: [id number] RECD: 03/20/18 13:01 STATUS: LINDA WRIGHT #: [id number] ALBERTO: 03/20/18 11:[address]: Iram Nguyen DEPT: Surgical Specimen RECD BY: Maranda Springer ENTERED: 03/20/18 13:03 SP TYPE: FRANKY JANE DR: Andrew Ramirez Tissues: 1 - SKIN BIOPSY(SHAVE/PUNCH) Procedures: IMMUNOPEROXIDASE STAIN SKIN LEVEL 4 IHC Staining, HNPCC Comments: [id number]
== END 2018-03-20 13:12 ==
LOC: LBN 12:52
PROVIDERS: PCP Family Medicine; Visit Provider Surgery
DX: C44.40 Unspecified malignant neoplasm of skin of scalp and neck (principal); Z85.028 Personal history of other malignant neoplasm of stomach; Z15.09 Genetic susceptibility to other malignant neoplasm
CPT/HCPCS: 88305; 88342; 88361

== ENCOUNTER 2018-03-31 01:12 | Outpatient (RCR) | payer BC, SELFPAY ==
[2018-03-24 10:27] LABS: Abs Immature Grans 0.01 k/cumm (0.0-0.09); Absolute Basophil Count 0.07 k/cumm (0.0-0.2); Absolute Eosinophil Count 0.04 k/cumm (0.0-0.7); Absolute Lymphocyte Count 1.04 k/cumm (1.2-3.4); Absolute Monocyte Count 0.58 k/cumm (0.11-0.7); Absolute Neutrophil Count 1.95 k/cumm (1.2-6.7); Basophils % 1.9; Eosinophils % 1.1; HCT 30.5 % (36.0-46.0); HGB 9.9 g/dL (12.0-15.5); Immature Grans % 0.3; Lymphocytes % 28.2; Mean Corp. HGB Concentration 32.5 g/dL (32.0-36.0); Mean Corpuscular Hemoglobin 32.8 pg (27.0-33.0); Monocytes % 15.7; Neutrophils % 52.8; RBC 3.02 m/cumm (4.00-5.20); RBC Distribution Width 15.4 % (11.7-14.6); White Blood Cell Count 3.69 k/cumm (4.4-10.8)
[2018-03-24 10:34] LABS: Albumin 2.7 g/dL (3.4-5.0); BUN 9 mg/dL (7-18); Calcium 9.1 mg/dL (8.5-10.1); Chloride 93 mmol/L (98-107); Glucose 76 mg/dL (70-100); Magnesium 0.9 mg/dL (1.8-2.4); Potassium 3.3 mmol/L (3.5-5.1)
[2018-03-24 10:39] LABS: ALT 14 U/L (12-78); AST 20 U/L (15-37); Alkaline Phosphatase 103 U/L (46-116); Anion Gap 13.6 mmol/L (3-11); CO2 28.4 mmol/L (21.0-32.0); CREATININE 0.44 mg/dL (0.55-1.02); Sodium 135 mmol/L (136-145); Total Protein 6.1 g/dL (6.4-8.2)
[2018-03-24 10:41] LABS: Diff Comment RBC Morph Reviewed; Platelet Count 106 x1000/uL (130-400); Polychromasia Present
[2018-03-24] MEDS: Normal Saline Flush 10 ML SYR IVP (11:45)
[2018-03-31] MEDS: Normal Saline Flush 10 ML SYR IVP (10:50)
[2018-03-31 11:11] LABS: Abs Immature Grans 0.03 k/cumm (0.0-0.09); Absolute Basophil Count 0.06 k/cumm (0.0-0.2); Absolute Eosinophil Count 0.02 k/cumm (0.0-0.7); Absolute Lymphocyte Count 0.95 k/cumm (1.2-3.4); Absolute Neutrophil Count 2.45 k/cumm (1.2-6.7); Basophils % 1.5; Eosinophils % 0.5; HCT 28.9 % (36.0-46.0); HGB 9.2 g/dL (12.0-15.5); Immature Grans % 0.7; Lymphocytes % 23.1; Mean Corp. HGB Concentration 31.8 g/dL (32.0-36.0); Mean Corpuscular Hemoglobin 32.6 pg (27.0-33.0); Mean Corpuscular Volume 102.5 fL (80-95); Mean Platelet Volume 11.1 fL (8.0-11.0); Monocytes % 14.6; Neutrophils % 59.6; Platelet Count 116 x1000/uL (130-400); RBC 2.82 m/cumm (4.00-5.20); White Blood Cell Count 4.11 k/cumm (4.4-10.8)
[2018-03-31 11:12] LABS: Bilirubin Negative (Negative); Blood Negative (Negative); Clarity Clear; Glucose Negative (Negative); Ketones Negative (Negative); Leukocyte Esterase Trace (Negative); Nitrite Negative (Negative); Specific Gravity 1.025 (1.005-1.025); Urobilinogen 0.2 EU/dL (Up TO 0.2); pH 5.5 (5-8)
[2018-03-31 11:21] LABS: Bacteria Moderate HPF (Negative); Casts Negative LPF (Negative); Crystals Negative HPF (Negative); Epithelial Cells Many HPF (Negative); Mucus Trace (Negative); Other Cells Rare Renal (Negative); RBC 0-2 (0-2)
[2018-03-31 11:22] LABS: C & S Indicated? No/Sq. Contamination
[2018-03-31 11:26] LABS: ALT 13 U/L (12-78); AST 15 U/L (15-37); Albumin 2.5 g/dL (3.4-5.0); Alkaline Phosphatase 104 U/L (46-116); Anion Gap 8.3 mmol/L (3-11); BUN 6 mg/dL (7-18); Bilirubin, Total 0.7 mg/dL (0.2-1.0); CO2 30.7 mmol/L (21.0-32.0); CREATININE 0.43 mg/dL (0.55-1.02); Calcium 9.5 mg/dL (8.5-10.1); Chloride 95 mmol/L (98-107); Glucose 105 mg/dL (70-100); Potassium 3.7 mmol/L (3.5-5.1); Sodium 134 mmol/L (136-145)
== END 2018-04-17 23:59 | disposition home or self-care (01) ==
LOC: INF 01:12
PROVIDERS: PCP Family Medicine; Visit Provider Internal Medicine
DX: C16.8 Malignant neoplasm of overlapping sites of stomach (principal); C79.51 Secondary malignant neoplasm of bone; Z45.2 Encounter for adjustment and management of vascular access device
CPT/HCPCS: 36591; 80053; 81003; 81015; 82378; 83735; 85025

== ENCOUNTER 2018-04-23 02:09 | Outpatient (RCR) | payer BC, SELFPAY ==
[2018-04-23] MEDS: Normal Saline Flush 10 ML SYR IVP (10:47)
[2018-04-23 10:56] LABS: Abs Immature Grans 0.04 k/cumm (0.0-0.09); Absolute Basophil Count 0.07 k/cumm (0.0-0.2); Absolute Eosinophil Count 0.07 k/cumm (0.0-0.7); Absolute Lymphocyte Count 1.75 k/cumm (1.2-3.4); Absolute Monocyte Count 1.25 k/cumm (0.11-0.7); Absolute Neutrophil Count 7.15 k/cumm (1.2-6.7); Basophils % 0.7; Eosinophils % 0.7; HCT 37.9 % (36.0-46.0); HGB 12.1 g/dL (12.0-15.5); Immature Grans % 0.4; Lymphocytes % 16.9; Mean Corp. HGB Concentration 31.9 g/dL (32.0-36.0); Mean Corpuscular Hemoglobin 32.1 pg (27.0-33.0); Mean Corpuscular Volume 100.5 fL (80-95); Monocytes % 12.1; Neutrophils % 69.2; Platelet Count 113 x1000/uL (130-400); RBC 3.77 m/cumm (4.00-5.20); RBC Distribution Width 16.7 % (11.7-14.6); White Blood Cell Count 10.33 k/cumm (4.4-10.8)
[2018-04-23 10:57] LABS: Bilirubin Moderate (Negative); Blood Small (Negative); Clarity Cloudy; Glucose Negative (Negative); Ketones Trace mg/dL (Negative); Leukocyte Esterase Moderate (Negative); Nitrite Negative (Negative); Specific Gravity >= 1.030 (1.005-1.025)
[2018-04-23 11:12] LABS: Bacteria Few HPF (Negative); C & S Indicated? No/Sq. Contamination; Casts Negative LPF (Negative); Crystals Mod Calcium Oxalate HPF (Negative); Epithelial Cells Many HPF (Negative); Mucus Negative (Negative); WBC >50 HPF (0-5)
[2018-04-23 11:33] LABS: ALT 18 U/L (12-78); AST 23 U/L (15-37); Albumin 2.6 g/dL (3.4-5.0); Alkaline Phosphatase 132 U/L (46-116); Anion Gap 9.7 mmol/L (3-11); BUN 15 mg/dL (7-18); Bilirubin, Total 1.1 mg/dL (0.2-1.0); CO2 29.3 mmol/L (21.0-32.0); CREATININE 0.55 mg/dL (0.55-1.02); Chloride 94 mmol/L (98-107); FREE T4 1.52 ng/dL (0.76-1.46); Glucose 88 mg/dL (70-100); Potassium 4.1 mmol/L (3.5-5.1); Sodium 133 mmol/L (136-145); TSH 2.51 uIU/mL (0.358-3.74); Total Protein 6.4 g/dL (6.4-8.2)
[2018-04-23 11:40] LABS: Magnesium 0.7 mg/dL (1.8-2.4)
== END 2018-05-18 23:59 | disposition home or self-care (01) ==
LOC: INF 02:09
PROVIDERS: PCP Family Medicine; Visit Provider Internal Medicine
DX: C16.9 Malignant neoplasm of stomach, unspecified (principal); C79.51 Secondary malignant neoplasm of bone; C79.9 Secondary malignant neoplasm of unspecified site; Z79.899 Other long term (current) drug therapy; Z45.2 Encounter for adjustment and management of vascular access device
CPT/HCPCS: 36591; 80053; 81003; 81015; 83735; 84439; 84443; 85025

== ENCOUNTER 2018-06-02 01:23 | Outpatient (RCR) | payer BC, SELFPAY | END 2018-06-18 23:59 | disposition home or self-care (01) | LOC: INF 01:23 | PROVIDERS: PCP Family Medicine; Visit Provider Internal Medicine | DX: R69 Illness, unspecified (principal) ==